=== PATIENT | male | born 1990 | race Caucasian/White ===

== ENCOUNTER 2018-04-04 21:28 | Emergency (ER) | payer OTHER ==
[~2018-04-04] VITALS: Ht 172.7 cm; Wt 81.6 kg
[2018-04-04 21:40] VITALS: BP 109/55
--- NOTE | 2018-04-04 21:40 | NUR ---
TO BED # 2 AMBULATORY, REPORT GIVEN TO MAHIN BARBOUR
--- NOTE | 2018-04-04 21:50 | NUR ---
28/M CAME IN ED WITH FAMILY, C/O BODYACHES AND CHILLS X1 DAY. PT REPORTS 8/10 PAIN AT THIS TIME, MOSTLY LOWER BACK PAIN AND LEGS. PT DENIES ANY FEVER, AFEBRILE AT THIS TIME. REPORTS INTERMITTENT PRODUCTIVE COUGH. REPORTS HAVING EPISODE OF N/V IN THE AM. AOX4, GCS 15, AMBULATORY, RR EVEN AND UNLABORED. LUNG SOUNDS CLEAR BL. LBM TODAY, DENIES CONSTIPATION, DIARRHEA OR DYSURIA. BS ACTIVE X4, ABD SOFT ROUND NONTENDER. DENIES MED HX.
[2018-04-04] MEDS ORDERED: KETOROLAC 30 MG/ML VIAL IM ONE (22:10)
[2018-04-04] MEDS ORDERED: ONDANSETRON 4 MG ODT PO ONE (22:10)
--- NOTE | 2018-04-04 22:53 | NUR ---
Patient discharged with v/s stable. Written and verbal after care instructions given and explained. Patient alert, oriented and verbalized understanding of instructions. Ambulatory with steady gait. All questions addressed prior to discharge. ID band removed. Patient advised to follow up with PMD. Rx of NAPROSYN, ACETAMINOPHEN, ZOFRAN ODT given. Patient educated on indication of medication including possible reaction and side effects. Opportunity to ask questions provided and answered.
[2018-04-04 22:57] VITALS: BP 128/70
== END 2018-04-04 22:53 | disposition home or self-care (01) ==
LOC: MED 21:28
DX: M79.10 Myalgia, unspecified site (principal); R11.2 Nausea with vomiting, unspecified; R53.1 Weakness; R05 Cough; R09.89 Other specified symptoms and signs involving the circulatory and respiratory systems; F17.200 Nicotine dependence, unspecified, uncomplicated
CPT/HCPCS: 36415; 87804; 96372; 99283; J1885; Q0162

== ENCOUNTER 2019-08-15 21:01 | Emergency (ER) | payer OTHER ==
[~2019-08-15] VITALS: Ht 172.7 cm; Wt 90.7 kg
[2019-08-15 21:05] VITALS: BP 147/97
--- NOTE | 2019-08-15 21:18 | NUR ---
pt ambulated to bed 12 with steady gait.
--- NOTE | 2019-08-15 21:27 | NUR ---
29M c/o EPIGASTRIC PAIN SINCE 11AM. PT STATES HAS INTERMITTENT ACID REFLUX FOR 2 YEARS. NO PRECIPITATING FACTORS THIS TIME. PAIN FEELS LIKE ACHING/BURNING THAT IS NON RADIATING. NO OTC MED TAKEN FOR PAIN TODAY. PAIN 11/03. medhx: denies rx: denies
[2019-08-15] MEDS ORDERED: ALUMINUM HYD/MAG/SIMETHICONE 30 ML UDC PO ONE (21:30)
[2019-08-15] MEDS ORDERED: FAMOTIDINE 20 MG TAB PO ONE (21:30)
[2019-08-15] MEDS ORDERED: LIDOCAINE VISCOUS 2% 20 ML UDC PO ONE (21:30)
[2019-08-15 21:32] VITALS: BP 147/97
[2019-08-15 21:50] LABS: BASOPHILS # (AUTO) 0.1 K/uL (0.00-0.22); BASOPHILS % (AUTO) 0.4 % (0.0-2.0); EOSINOPHILS # (AUTO) 0.2 K/uL (0-0.4); EOSINOPHILS % (AUTO) 1.4 % (0.0-4.0); HEMOGLOBIN 16.4 g/dL (12.0-18.0); LYMPHOCYTES # (AUTO) 3.1 K/uL (2.0-11.5); LYMPHOCYTES % (AUTO) 18.5 % (20.5-51.1); MEAN CORPUSCULAR HEMOGLOBIN 30 pg (27-31); MEAN CORPUSCULAR HGB CONC 34 g/dL (33-37); MEAN CORPUSCULAR VOLUME 89.7 fL (80-94); MONOCYTES # (AUTO) 1.1 K/uL (0.8-1.0); MONOCYTES % (AUTO) 6.5 % (1.7-9.3); NEUTROPHILS # (AUTO) 12.1 K/uL (1.8-7.7); NEUTROPHILS % (AUTO) 73.2 % (42.2-75.2); PLATELET COUNT (AUTO) 300 K/uL (140-450); RED BLOOD CELL COUNT(AUTO) 5.46 MIL/uL (4.20-6.10); RED CELL DISTRIBUTION WIDTH 13.8 % (11.6-13.7); WHITE BLOOD COUNT (AUTO) 16.5 K/uL (4.8-10.8)
[2019-08-15 22:09] LABS: ALBUMIN 4.7 g/dL (3.4-5.0); CARBON DIOXIDE 29.5 mmol/L (21-32); POTASSIUM 3.5 mmol/L (3.5-5.1)
--- NOTE | 2019-08-15 22:27 | NUR ---
Patient discharged with v/s stable. Written and verbal after care instructions given and explained. Patient alert, oriented and verbalized understanding of instructions. Ambulatory with steady gait. All questions addressed prior to discharge. ID band removed. Patient advised to follow up with PMD. Rx of OMEPRAZOLE given. Patient educated on indication of medication including possible reaction and side effects. Opportunity to ask questions provided and answered.
== END 2019-08-15 22:27 | disposition home or self-care (01) ==
LOC: MED 21:01
DX: K29.70 Gastritis, unspecified, without bleeding (principal); F17.200 Nicotine dependence, unspecified, uncomplicated; R03.0 Elevated blood-pressure reading, without diagnosis of hypertension; Z71.6 Tobacco abuse counseling
CPT/HCPCS: 36415; 80053; 83690; 85025; 99284